=== PATIENT | male | born 1995 | race American Indian/Alaskan Native ===

== ENCOUNTER 2018-11-29 20:34 | Emergency (ER) | payer MEDICAID, OTHER ==
--- NOTE | 2018-11-29 21:10 | EDM.PDOC ---
ED HPI GENERAL MEDICAL PROBLEM - General Chief Complaint: Skin Complaint Stated Complaint: RASH Time Seen by Provider: 11/29/18 21:05 Source of Information: Reports: Patient History Limitations: Reports: No Limitations - History of Present Illness INITIAL COMMENTS - FREE TEXT/NARRATIVE: This 23 yo male patient reports to the ED with a rash to his neck. The patient reports he started to notice the rash about 1 week ago. The patient reports he attempted to get into the clinic on Friday, but could not get in. The patient has been applying topical steroid cream, but the rash has been getting worse. 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 [No Known Home Meds] 11/29/18 [History] Past Medical History - Past Health History Medical/Surgical History: Denies Medical/Surgical History Social & Family History - Family History Family Medical History: Noncontributory - Tobacco Use Smoking Status *Q: Current Every Day Smoker Years of Tobacco use: 11 Packs/Tins Daily: 6 - Caffeine Use Caffeine Use: Reports: Soda - Alcohol Use Date of Last Drink: 11/22/18 - Recreational Drug Use Recreational Drug Use: Yes Drug Use in Last 12 Months: Yes Recreational Drug Type: Reports: Marijuana/Hashish Recreational Drug Use Frequency: Socially ED ROS GENERAL - Review of Systems Review Of Systems: ROS reveals no pertinent complaints other than HPI. ED EXAM, SKIN/RASH Exam: See Below Exam Limited By: No Limitations General Appearance: Alert, WD/WN, Mild Distress Eye Exam: Bilateral Eye: EOMI, Normal Inspection, PERRL Ears: Normal External Exam, Normal Canal, Hearing Grossly Normal, Normal TMs Nose: Normal Inspection, Normal Mucosa, No Blood Throat/Mouth: Normal Inspection, Normal Lips, Normal Teeth, Normal Gums, Normal Oropharynx, Normal Voice, No Airway Compromise Head: Atraumatic, Normocephalic Neck: Supple, Non-Tender, Full Range of Motion, Other (dermatitis left neck ( erythema no drainage)) Respiratory/Chest: No Respiratory Distress Cardiovascular: Normal Peripheral Pulses, Regular Rate, Rhythm, No Edema, No Gallop, No JVD, No Murmur, No Rub GI/Abdominal: Normal Bowel Sounds, Soft, Non-Tender, No Organomegaly, No Distention, No Abnormal Bruit, No Mass (Male) Exam: Deferred Rectal (Males) Exam: Deferred Back Exam: Normal Inspection, Full Range of Motion, NT Extremities: Normal Inspection, Normal Range of Motion, Non-Tender, No Pedal Edema, Normal Capillary Refill Neurological: Alert, Oriented, CN II-XII Intact, Normal Cognition, Normal Gait, Normal Reflexes, No Motor/Sensory Deficits Psychiatric: Normal Affect, Normal Mood Skin: Warm, Dry, Intact, Normal Color, Erythema (left neck) Location, Skin: Neck Characteristics: Erythematous, Other Lymphatic: No Adenopathy Course - Vital Signs Last Recorded V/S: Last Vital Signs Temp 36.1 C 11/29/18 20:43 Pulse 103 H 11/29/18 20:43 Resp 19 11/29/18 20:43 BP 168/88 H 11/29/18 20:43 Pulse Ox 97 11/29/18 20:43 Departure - Departure Time of Disposition: 21:10 Disposition: Home, Self-Care 01 Condition: Fair Clinical Impression: Contact dermatitis - Discharge Information *PRESCRIPTION DRUG MONITORING PROGRAM REVIEWED*: Not Applicable *COPY OF PRESCRIPTION DRUG MONITORING REPORT IN PATIENT ARIEL: Not Applicable Instructions: Contact Dermatitis, [id number] Care Plan Goals: The patient was advised of the examination results during the visit. The patient was discharged with Bactroban ointment to apply to the area 3 times per day for 10 days. If the patient has any additional symptoms or concerns, the patient should follow-up with his primary care facility.
[2018-11-29] MEDS ORDERED: Mupirocin Oint 22 GM Tube ONE (21:11)
== END 2018-11-29 21:16 | disposition home or self-care (01) ==
LOC: DL.ED 20:34
DX: L25.9 Unspecified contact dermatitis, unspecified cause (principal); F17.210 Nicotine dependence, cigarettes, uncomplicated
CPT/HCPCS: 99282

== ENCOUNTER 2019-09-09 19:33 | Emergency (ER) | payer SELFPAY ==
[2019-09-09] MEDS ORDERED: Bacitracin Oint 1 GM U/D Packet TOP ONE (21:24)
[2019-09-09] MEDS ORDERED: Lidocaine 1% 30 ML SDV INJECT ONE (21:24)
[2019-09-09] MEDS ORDERED: Iopamidol 612 MG/ML 100 ML Bottle IVPUSH ONE (21:57)
[2019-09-09] MEDS ORDERED: Ketorolac 30 MG/ML SDV IVPUSH ONE (21:59)
[2019-09-09 22:07] LABS: ANION GAP 15.1 mEq/L (7-13); CHLORIDE,CL 101 mmol/L (98-107); SODIUM,NA 141 mmol/L (136-145)
--- NOTE | 2019-09-09 22:48 | CT ---
PROCEDURE INFORMATION: Exam: CT Left Upper Extremity With Contrast, Forearm Exam date and time: 09/09/2019 10:16 PM Age: 24 years old Clinical indication: Other: Recent ind; Additional info: Abscess, cellulitis, wbc 13 TECHNIQUE: Imaging protocol: CT of the Left upper extremity with intravenous contrast was performed. Exam focused on the forearm. Radiation optimization: All CT scans at this facility use at least one of these dose optimization techniques: automated exposure control; mA and/or kV adjustment per patient size (includes targeted exams where dose is matched to clinical indication); or iterative reconstruction. Contrast material: [id number]; Contrast volume: 100 ml; Contrast route: RIGHT HAND; COMPARISON: No relevant prior studies available. FINDINGS: Bones/joints: Normal. No acute fracture or dislocation. Soft tissues: Edema in the subcutaneous fat of the forearm. Irregular fluid collection in the subcutaneous fat of the anterior proximal forearm. It abuts the adjacent musculature. It measures 2.8 x 2.5 cm. Soft tissue nodule in the subcutaneous fat of the anterior right elbow measuring 1.2 by 1.4 cm. IMPRESSION: Irregular fluid collection in the subcutaneous tissues of the anterior forearm is presumed to represent an abscess. It would be amenable to percutaneous aspiration as clinically indicated.
[2019-09-09] MEDS ORDERED: Piperacillin/Tazobactam 3.375 GM in Sodium Chloride 0.9% 100 ML IV ONE (23:18)
--- NOTE | 2019-09-10 06:17 | EDM.PDOC ---
ED HPI GENERAL MEDICAL PROBLEM - General Chief Complaint: Skin Complaint Stated Complaint: BOIL ON ARM Time Seen by Provider: 09/09/19 20:00 Source of Information: Reports: Patient History Limitations: Reports: No Limitations - History of Present Illness INITIAL COMMENTS - FREE TEXT/NARRATIVE: ED with c/o pain swelling to left arm for past 3 days. Denies injury, area just started with small sore, wound has not been draining. Denies hx of skin infections. Initially denied IVDU later admitting but not on that arm or any recent IV use. chill, no known fever, No nausea or vomiting. Duration: Minutes:, Getting Worse Left Arm Pain Score (Numeric/FACES): 4 - Related Data Allergies Allergy/AdvReac Type Severity Reaction Status Date / Time No Known Allergies Allergy Verified 11/29/18 20:55 Home Meds: Home Meds . [No Known Home Meds] 11/29/18 [History] Past Medical History - Past Health History Medical/Surgical History: Denies Medical/Surgical History Social & Family History - Family History Family Medical History: Noncontributory - Tobacco Use Smoking Status *Q: Current Every Day Smoker Years of Tobacco use: 6 Packs/Tins Daily: 0.5 - Caffeine Use Caffeine Use: Reports: None - Recreational Drug Use Recreational Drug Use: No ED ROS GENERAL - Review of Systems Review Of Systems: Comprehensive ROS is negative, except as noted in HPI. Constitutional: Reports: Fever, Chills, Malaise HEENT: Reports: No Symptoms Respiratory: Reports: No Symptoms Cardiovascular: Reports: No Symptoms GI/Abdominal: Reports: No Symptoms : Reports: No Symptoms Skin: Reports: Erythema, Wound Neurological: Reports: No Symptoms Psychiatric: Reports: No Symptoms Hematologic/Lymphatic: Reports: No Symptoms ED EXAM, SKIN/RASH Exam: See Below Exam Limited By: Physical Impairment General Appearance: Alert, Mild Distress Eye Exam: Left Eye: Conjunctival Injection Ears: Normal External Exam Nose: Normal Inspection Throat/Mouth: Normal Inspection, Normal Lips, Normal Voice Head: Atraumatic, Normocephalic Neck: Normal Inspection Respiratory/Chest: No Respiratory Distress, Lungs Clear Cardiovascular: Regular Rate, Rhythm Peripheral Pulses: 2+: Dorsalis Pedis (R) GI/Abdominal: Normal Bowel Sounds (Male) Exam: Normal Inspection Back Exam: Normal Inspection, Full Range of Motion Extremities: Arm Pain (swlling left forearm mid to below elbos, erythem, 1cm wound ) ED SKIN PROCEDURES - I&D Skin Prep: Chlorhexidine (Hibiciens), Providone-Iodine (Betadine) Local Anesthesia: Lidocaine: 1% Plain Area Incised With: 11 Blade Drainage: Purulent, Bloody, Moderate Amount Probed to Break Up Loculations: No Sterile Dressinx4(s) Complications: No Course - Vital Signs Last Recorded V/S: Last Vital Signs Temp 97.1 F 09/09/19 19:46 Pulse 115 H 09/09/19 19:46 Resp 20 09/09/19 19:46 BP 143/99 H 09/09/19 19:46 Pulse Ox 100 09/09/19 19:46 - Orders/Labs/Meds Labs: Laboratory Tests 09/09/19 09/09/19 09/09/19 Range/Units 21:25 21:25 21:25 WBC 12.9 H (5.0-10.0) 10^3/uL RBC 5.43 (4.6-6.2) 10^6/uL Hgb 14.7 (14.0-18.0) g/dL Hct 44.4 (40.0-54.0) % MCV 81.8 (80-100) fL MCH 27.1 (27.0-34.0) pg MCHC 33.1 (33.0-35.0) g/dL Plt Count 380 (150-450) 10^3/uL Neut % (Auto) 75.2 (42.2-75.2) % Lymph % (Auto) 14.8 L (20.5-50.1) % Bullock % (Auto) 8.7 H (2-8) % Eos % (Auto) 1.1 (1.0-3.0) % Baso % (Auto) 0.2 (0.0-1.0) % Sodium 141 (136-145) mmol/L Potassium 4.1 (3.5-5.1) mmol/L Chloride 101 (98-107) mmol/L Carbon Dioxide 29 (21-32) mmol/L Anion Gap 15.1 H (7-13) mEq/L BUN 10 (7-18) mg/dL Creatinine 1.02 (0.70-1.30) mg/dL Est Cr Clr Drug Dosing 107.11 mL/min Estimated GFR (MDRD) > 60 BUN/Creatinine Ratio 9.8 (No establ ref range) Glucose 94 (74-99) mg/dL Lactic Acid 1.2 (0.4-2.0) mmol/L Calcium 9.0 (8.5-10.1) mg/dL Total Bilirubin 0.3 (0.2-1.0) mg/dL AST 65 H (15-37) U/L ALT 118 H (16-63) U/L Alkaline Phosphatase 125 H (46-116) U/L Total Protein 7.5 (6.4-8.2) g/dL Albumin 3.6 (3.4-5.0) g/dL Globulin 3.9 Albumin/Globulin Ratio 0.9 Meds: Medications Discontinued Medications Generic Name Dose Route Start Last Admin Trade Name Freq PRN Reason Stop Dose Admin Bacitracin 1 dose 09/09/19 21:24 09/09/19 21:54 Bacitracin Oint 1 Gm TOP 09/09/19 21:25 1 dose ONETIME ONE Administration Vancomycin HCl 1,500 mg/ 500 mls @ 333.333 mls/hr 09/09/19 21:11 09/10/19 01: 17 Sodium Chloride IV 09/09/19 22:40 Infused ONETIME ONE Infusion Piperacillin Sod/Tazobactam 100 mls @ 200 mls/hr 09/09/19 23:18 09/10/19 01: 17 Sod 3.375 gm/ Sodium Chloride IV 09/09/19 23:47 Infused ONETIME ONE Infusion Iopamidol 100 ml 09/09/19 21:57 09/09/19 22:06 Isovue-300 (61%) IVPUSH 09/09/19 21:58 100 ml ONETIME ONE Administration Ketorolac Tromethamine 30 mg 09/09/19 21:59 09/09/19 22:16 Toradol IVPUSH 09/09/19 22:00 30 mg ONETIME ONE Administration Lidocaine HCl 30 ml 09/09/19 21:24 09/09/19 21:54 Xylocaine-Mpf 1% INJECT 09/09/19 21:25 30 ml ONETIME ONE Administration - Re-Assessments/Exams Free Text/Narrative Re-Assessment/Exam: TC Dr Khan, recommend higher level of care. TC Dr Quick, accepting patient for admission. Tx via [facility]. 09/13/19 04:39 Departure - Departure Time of Disposition: 02:50 Disposition: DC/Tfer to Acute Hospital 02 Condition: Good Clinical Impression: Abscess Cellulitis Qualifiers: Site of cellulitis: extremity Site of cellulitis of extremity: upper extremity Laterality: left Qualified Code(s): L03.114 - Cellulitis of left upper limb - Discharge Information Referrals: PCP,None [Primary Care Provider] - Forms: ED Department Discharge Sepsis Event Note (ED) - Evaluation Sepsis Screening Result: No Definite Risk - Problem List Review Problem List Initiated/Reviewed/Updated: Yes
== END 2019-09-10 02:35 ==
LOC: DL.ED 19:33
DX: L03.114 Cellulitis of left upper limb (principal); L02.414 Cutaneous abscess of left upper limb; F17.210 Nicotine dependence, cigarettes, uncomplicated
CPT/HCPCS: 10060; 36415; 73201; 80053; 83605; 85025; 87040; 87070; 87077; 87186; 96365; 96366; 96367; 96375; 99284; J1885; J2001; J2543; J3370; J7040; J7050; Q9967

== ENCOUNTER 2020-02-10 11:58 | Emergency (ER) | payer OTHER ==
[2020-02-10] MEDS ORDERED: Diphtheria,Pertussis(Acell),Tetanus Vaccine 0.5 ML Syringe IM ONE (13:29)
[2020-02-10] MEDS ORDERED: Bacitracin Oint 1 GM U/D Packet TOP ONE (13:30)
[2020-02-10] MEDS ORDERED: Lidocaine 1% 30 ML SDV INJECT ONE (13:30)
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
== END 2020-02-10 14:15 ==
LOC: DL.ED 11:58
DX: S41.131A Puncture wound without foreign body of right upper arm, initial encounter (principal); S61.511A Laceration without foreign body of right wrist, initial encounter; F17.210 Nicotine dependence, cigarettes, uncomplicated; Z23 Encounter for immunization; W26.0XXA Contact with knife, initial encounter
CPT/HCPCS: 12002; 90471; 90715; 99282; 99283-25; J2001